=== PATIENT | female | born 1965 | race African-American/Black ===

== ENCOUNTER 2017-06-19 14:08 | Emergency (ER) | payer OTHER ==
[2017-06-19 14:57] LABS: ADD MAN DIFF? NO
[2017-06-19 14:58] LABS: AGAP ISTAT 13 mmol/L (6-14); BUN ISTAT 6 mg/dL (8-26); CHLORIDE ISTAT 106 mmol/L (98-110); CREATININE ISTAT 0.8 mg/dL (0.5-1.4); GLUCOSE ISTAT 97 mg/dL (70-99); HEMATOCRIT ISTAT 38 % (36-40); HEMOGLOBIN ISTAT 12.9 g/dL (12-15); ION CA ISTAT 1.08 mmol/L (1.13-1.32); POTASSIUM ISTAT 3.5 mmol/L (3.5-5.0); SODIUM ISTAT 140 mmol/L (135-145); TOT CO2 ISTAT 24 mmol/L (23-32)
[2017-06-19 15:01] LABS: BASO # 0.1 x10^3/uL (0.0-0.2); BASO % 1 % (0-3); EOS # 0.1 x10^3/uL (0.0-0.7); EOS % 1 % (0-3); HEMATOCRIT 38.4 % (36.0-47.0); HEMOGLOBIN 12.9 g/dL (12.0-15.5); LYMPH # 1.6 x10^3/uL (1.0-4.8); LYMPH % 16 % (24-48); MEAN CORPUSCULAR HEMOGLOBIN 31 pg (25-35); MEAN CORPUSCULAR HGB CONC 34 g/dL (31-37); MEAN CORPUSCULAR VOLUME 91 fL (79-100); MONO # 0.8 x10^3/uL (0.0-1.1); MONO % 9 % (0-9); NEUT # 7.4 x10^3uL (1.8-7.7); NEUT % 74 % (31-73); PLATELET COUNT 237 x10^3/uL (140-400); RED BLOOD COUNT 4.21 x10^6/uL (3.50-5.40); RED CELL DISTRIBUTION WIDTH 14.5 % (11.5-14.5); WHITE BLOOD COUNT 9.9 x10^3/uL (4.0-11.0)
[2017-06-19 15:02] LABS: BILIRUBIN,URINE NEGATIVE (NEG); CLARITY,URINE CLOUDY; COLOR,URINE AMBER; GLUCOSE,URINE NEGATIVE (NEG); NITRITE,URINE NEGATIVE (NEG); PROTEIN,URINE 30 mg/dL (NEG-TRACE)
[2017-06-19 15:13] LABS: ANION GAP 12 (6-14); BLOOD UREA NITROGEN 8 mg/dL (7-20); CALCIUM 9.1 mg/dL (8.5-10.1); CARBON DIOXIDE 24 mmol/L (21-32); CHLORIDE 105 mmol/L (98-107); CREATININE 0.9 mg/dL (0.6-1.0); GFR 79.9; GLUCOSE 103 mg/dL (70-99); POTASSIUM 3.7 mmol/L (3.5-5.1); SODIUM 141 mmol/L (136-145)
[2017-06-19] MEDS: IOHEXOL 300 MG/ML 100ML VIAL. IV (15:14)
[2017-06-19] MEDS ORDERED: CONTRAST GIVEN MC (15:15)
[2017-06-19 15:19] LABS: ALBUMIN 3.1 g/dL (3.4-5.0); ALK PHOS 108 U/L (46-116); ALT (SGPT) 15 U/L (14-59); AST (SGOT) 12 U/L (15-37); DIRECT BILIRUBIN 0.1 mg/dL (0.0-0.2); LIPASE 63 U/L (73-393); NEG OBC UR NEG; POS OBC UR POS; TOTAL BILIRUBIN 0.4 mg/dL (0.2-1.0); TOTAL PROTEIN 7.3 g/dL (6.4-8.2); U PREG PATIENT NEGATIVE (NEG)
[2017-06-19 15:21] LABS: TROPONINI < 0.017 ng/mL (0.000-0.055)
[2017-06-19 15:22] LABS: LACTIC ACID 1.7 mmol/L (0.4-2.0)
[2017-06-19] MEDS: LIDO:MAALOX 1:1 20 ML SINGLE DOSE. PO (15:22)
[2017-06-19 15:35] LABS: BACTERIA,URINE MODERATE /HPF (0-FEW); RBC,URINE OCC /HPF (0-2); SQUAMOUS EPITHELIAL CELL,UR MANY /LPF
[2017-06-19] MEDS: FAMOTIDINE 20 MG TABLET. PO (16:02)
== END 2017-06-19 16:10 | disposition home or self-care (01) ==
LOC: ER 14:08
DX: R10.13 Epigastric pain (principal); K21.9 Gastro-esophageal reflux disease without esophagitis; I10 Essential (primary) hypertension
CPT/HCPCS: 36415; 74177; 80047; 80048; 80076; 81001; 81025; 83605; 83690; 84484; 85025; 87086; 93005; 99285-25; Q9967